=== PATIENT | female | born 1965 | race Caucasian/White ===

== ENCOUNTER 2020-05-28 08:30 | Day surgery (SDC) | payer MEDICARE ==
--- NOTE | 2020-05-28 08:08 | HP ---
DATE OF SURGERY: 05/28/2020 HISTORY OF PRESENT ILLNESS: The patient is a 54 year old started four to six weeks ago off and on change in bowel habits, worse problems, had three to four loose stools. She had extensive work up in the past. Some cramping and pain at times. No bloody stools. Family history of cousin passing away with colon cancer. PAST MEDICAL HISTORY: Denied chronic illnesses. Several years ago the patient had abnormal gallbladder ejection fraction. PAST SURGICAL HISTORY: section in the past. No other abdominal surgeries. MEDICATIONS: None. ALLERGIES: CODEINE. ACETAMINOPHEN. FAMILY HISTORY: Cousin passing away with colon cancer. SOCIAL HISTORY: No smoking or alcohol abuse. REVIEW OF SYSTEMS: Fourteen systems reviewed. No chest pain or palpitations. Other systems negative or noncontributory as above and per preadmission questionnaire. PHYSICAL EXAMINATION: GENERAL: No acute distress. HEENT: Sclerae nonicteric. NECK: No JVD. CHEST: Equal excursion, nonlabored breathing. CVS: Regular rate and rhythm. ABDOMEN: Soft. No peritoneal signs. EXTREMITIES: No significant edema. NEURO: Alert, oriented, moving extremities symmetrically. No gross motor deficits noted. RECTAL: Deferred timed to endoscopy exam. PSYCH: Appropriate mood and affect. IMPRESSION: Change in bowel habits, increased loose stools of unclear etiology. She in need of colonoscopy. She also has family history of colon cancer. She needs follow up colonoscopy for evaluation. Risks and benefits explained in detail including but not limited to bleeding or infection, risk of bowel injury or perforation possibly requiring open procedure, risk of missed or nondiagnosis or incomplete exam possibly requiring barium enema, other studies or procedures, general risk of anesthesia or sedation, risk of bowel prep but not limited to, consent obtained, will proceed with colonoscopy under MAC anesthesia.
[2020-05-28] MEDS ORDERED: Versed 2 MG/2 ML Injection IV ONE (09:21)
[2020-05-28] MEDS ORDERED: Versed 2 MG/2 ML Injection ONE (09:24)
[2020-05-28] MEDS ORDERED: Lactated Ringers 1,000 ML IV SCH (09:30)
[2020-05-28] MEDS ORDERED: DIPRIVAN 200 MG/20 ML IV ONE ×2 (10:49→11:01)
[2020-05-28] MEDS ORDERED: Xylocaine-Mpf 2% 5 Ml Vial ONE (11:00)
[2020-05-28 12:59] VITALS: BP 156/79; PULSE 76; O2SAT 97
--- NOTE | 2020-05-28 13:20 | OP ---
SURGERY DATE/TIME: 05/28/2020 1052 PREOPERATIVE DIAGNOSIS: Change in bowel habits, need for colonoscopy for further evaluation. POSTOPERATIVE DIAGNOSES: Slightly tortuous colon, fair bowel prep, large amount of liquidy stool throughout the colon slightly limiting the exam. Otherwise, no signs of any large polyps, masses or obstructing lesions. PROCEDURES: 1) Colonoscopy to terminal ileum 2) Retrograde ileoscopy. 3) Random cold biopsies of the colon to evaluate for microscopic colitis. SURGEON: Dr. Claudy Stephenson. PRODUCTION TECH: Eder Lindsay, Medical Student II. ANESTHESIA: MAC. ESTIMATED BLOOD LOSS: Minimal. INDICATIONS: As noted above. Risks and benefits explained in detail but not limited to and consent obtained. DESCRIPTION OF PROCEDURE AND FINDINGS: The patient is taken to the operating room. MAC anesthesia introduced. After official time out and no disagreement with planned procedure, digital rectal exam did not reveal any rectal masses. Video colonoscope passed up through the tortuous sigmoid, descending, transverse and ascending colon. It took some time given the large amount of liquidy stool throughout the colon requiring suction just slightly limiting the exam for very small lesions. The scope was able to be passed around to the cecum. Appendiceal orifice was photo documented. The scope passed up the terminal ileum. Retrograde ileoscopy performed which was grossly unremarkable. There were no signs of any michael inflammatory bowel disease in distal ileum. The scope was carefully withdrawn over the next eight minutes. No signs of any large polyps, masses or obstructing lesions. The mucosa did not have any evidence of macroscopic colitis but given her change in bowel habits, random cold biopsies were taken in the colon to evaluate for microscopic colitis. There were no signs of any large diverticula. No signs of any significant internal hemorrhoids. The scope was withdrawn. The patient tolerated the procedure well. There were no immediate complications. Findings discussed with the family over the phone.
== END 2020-05-28 12:25 | disposition home or self-care (01) ==
LOC: SDC 08:30
PROVIDERS: ATTEND Surgery
DX: R19.4 Change in bowel habit (principal); Z80.0 Family history of malignant neoplasm of digestive organs
CPT/HCPCS: J2250; J2704

== ENCOUNTER 2022-11-03 03:06 | Emergency (ER) | payer MEDICARE ==
[2022-11-03 04:15] LABS: Absolute Neutrophil Ct (ANC) 4.72 x10^3/uL (1.4-6.9); BASOPHIL % 0.5 % (0.0-0.4); Basophil (Absolute #) 0.05 x10^3/uL (0-0.4); Eosinophil % 0.6 % (0.00-5.0); Eosinophil (Absolute #) 0.06 x10^3/uL (0-0.5); Hematocrit 44.4 % (35-47); Hemoglobin 14.2 g/dL (12.0-16.0); IMMATURE GRAN # 0.03 x10^3u/L (0.00-0.03); IMMATURE GRAN % 0.3 % (0.00-0.4); Lymphocyte (Absolute #) 3.99 x10^3/uL (1.0-4.6); Lymphocytes % 42.7 % (24.0-44.0); Mean Cell Volume 99.8 fL (78-100); Mean Corpuscular Hemoglobin 31.9 pg (26-32); Mean Platelet Volume 9.9 fL (7.5-11.0); Monocytes % 5.3 % (0.0-12.0); Neutrophil % 50.6 % (36.0-66.0); Platelet Count 224 x10^3/uL (150-450); Red Blood Count 4.45 x10^6/uL (4.1-5.4); Red Cell Distribution Width 13.2 % (11.5-14.0); White Blood Count 9.4 x10^3/uL (4.0-10.5)
[2022-11-03 04:30] LABS: ALBUMIN 4.6 g/dL (3.5-5.0); ALKALINE PHOSPHATASE 102 U/L (38-126); ANION GAP 18.2 MEQ/L (5-15); BLOOD UREA NITROGEN 14 mg/dL (7-17); CHLORIDE 104 mmol/L (98-107); Calcium 9.9 mg/dL (8.4-10.2); Carbon Dioxide 20 mmol/L (22-30); Creatinine 1 0.91 mg/dL (0.52-1.04); EST GLOMERULAR FILTRATION RATE > 60.0 ML/MIN; Glucose 106 mg/dL (74-106); Potassium 3.2 mmol/L (3.5-5.1); SGOT/AST 27 U/L (14-36); SGPT/ALT 28 U/L (0-35); SODIUM 140 mmol/L (137-145); Total Protein 8.1 g/dL (6.3-8.2)
[2022-11-03 06:17] LABS: Appearance Clear (Clear); Bacteria Many /HPF (None Seen); Bilirubin Negative (Negative); Blood Negative (Negative); Epithelial Cells None Seen /HPF (None Seen); Glucose, Urine Negative (Negative); Hyaline Casts NONE SEEN /LPF (0-2); Ketones Negative (Negative); Leukocyte Esterase Negative (Negative); Nitrite Negative (Negative); Ph 5.5 (4.6-8.0); Protein,Urine Dip Negative (Negative); RBC 0-2 /HPF (0-5); Specific Gravity <=1.005 (1.005-1.030); Urobilinogen 0.2 mg/dL (0.2); WBC 0-2 /HPF (0-5)
[2022-11-03 06:21] LABS: ADD URINE CULTURE? NO (NO)
[2022-11-03] MEDS ORDERED: Klor Con PO ONE ×2 (06:41→07:00)
--- NOTE | 2022-11-03 06:46 | ERPHSYRPT ---
- History of Present Illness Source: patient Exam Limitations: no limitations Patient Subjective Stated Complaint: pt states that she has had this same shortness of breath for many months, that nothing changed causing her to call 911 tonight but she has a family history of heart disease and wants to know if she has any blockages in her heart. Triage Nursing Assessment: pt brought into room 6 via EMS stretcher. pt is alert and oriented times three, able to move all extremities (some limitation due to h/o cerebral palsy), resp even and unlabored, able to speak in complete sentences. pt denies SOB at this time, CP, abdominal pain, n/v, difficulty with urination or bowel elimination. breath sounds clear bilat anterior, heart sounds normal, abd soft, nontender with positive bowel sounds in all 4 quads. bilat pedal and radial pulses palpable and no edema noted. Timing/Duration: other (3+ months) Severity: mild Modifying Factors: Improves With: nothing Associated Symptoms: denies symptoms Hx Tetanus, Diphtheria Vaccination/Date Given: No Hx Influenza Vaccination/Date Given: No Hx Pneumococcal Vaccination/Date Given: No Immunizations Up to Date: No - History of Present Illness Time Seen by Provider: 11/03/22 03:30 Physician History: Patient is a 56-year-old female presents to our ED via EMS for evaluation of shortness of breath that has been ongoing for at least 6 months per patient. Patient has no change in her shortness of breath status but patient realized that she has a family history of heart disease. Patient is here to find out if she is got any active coronary blockages. Patient has no chest pain. No nausea vomiting or diaphoresis. No active symptomology. Symptoms are mild in intensity. No specific worsening improving factors. Patient wears 2 L nasal cannula at home. Patient voices no other complaints or concerns at this time. Portions of this note were created with voice recognition technology. There may be grammatical, spelling, punctuation or sound alike errors (AMALIA REDDY) Allergies/Adverse Reactions: acetaminophen [From Vicodin] Adverse Reaction (Mild, Verified 11/03/22 03:08) Vomiting hydrocodone bitartrate [From Vicodin] Adverse Reaction (Mild, Verified 11/03/22 03:08) Vomiting codeine Adverse Reaction (Verified 11/03/22 03:08) Home Medications: Cimetidine 200 mg PO DAILY 05/23/20 [History] Budesonide [Budesonide EC] 3 mg PO DAILY 11/03/22 [History] Simvastatin 20Mg [Zocor 20Mg] 20 mg PO QPM 11/03/22 [History] Travel Risk - International Travel Have you traveled outside of the country in past 3 weeks: No - Coronavirus Screening Are you exhibiting any of the following symptoms?: No Close contact with a COVID-19 positive Pt in past 14-21 Days: No - Vaccine Status Have you recieved a Covid-19 vaccination: No - Review of Systems Constitutional: No Symptoms, No Fever, No Chills Eyes: No Symptoms Ears, Nose, & Throat: No Symptoms Respiratory: No Symptoms, No Cough, No Dyspnea Cardiac: No Symptoms, No Chest Pain, No Edema, No Syncope Abdominal/Gastrointestinal: No Symptoms, No Abdominal Pain, No Nausea, No Vomiting, No Diarrhea Genitourinary Symptoms: No Symptoms, No Dysuria Musculoskeletal: No Symptoms, No Back Pain, No Neck Pain Skin: No Symptoms, No Rash Neurological: No Symptoms, No Dizziness, No Focal Weakness, No Sensory Changes Psychological: No Symptoms Endocrine: No Symptoms Hematologic/Lymphatic: No Symptoms Immunological/Allergic: No Symptoms All Other Systems: Reviewed and Negative - Past Medical History Pertinent Past Medical History: Yes Neurological History: Other ENT History: No Pertinent History Cardiac History: High Cholesterol Respiratory History: No Pertinent History Endocrine Medical History: No Pertinent History Musculoskeletal History: Other GI Medical History: No Pertinent History History: No Pertinent History Psycho-Social History: No Pertinent History Female Reproductive Disorders: No Pertinent History Other Medical History: Hx of cerebral palsy - Past Surgical History Past Surgical History: Yes Neuro Surgical History: No Pertinent History Cardiac: No Pertinent History Respiratory: No Pertinent History Gastrointestinal: No Pertinent History Genitourinary: No Pertinent History Musculoskeletal: Orthopedic Surgery Female Surgical History: Section Other Surgical History: EGD, states surgery r/t cerebral palsey. as broken legs,heel chord reductions,gustavo leg ligaments,left arm muscle removed for leg,c- section - Social History Smoking Status: Never smoker Exposure to second hand smoke: Yes Drug Use: none Patient Lives Alone: No (see note) - Physical Exam General Appearance: no apparent distress, alert, other (Intact nasal cannula at 2 L) Eye Exam: PERRL/EOMI, eyes nml inspection Ears, Nose, Throat Exam: normal ENT inspection, TMs normal, pharynx normal, moist mucous membranes Neck Exam: normal inspection, non-tender, supple, full range of motion Respiratory Exam: normal breath sounds, lungs clear, No respiratory distress Cardiovascular Exam: regular rate/rhythm, normal heart sounds, normal peripheral pulses Gastrointestinal/Abdomen Exam: soft, normal bowel sounds, No tenderness, No mass Back Exam: normal inspection, normal range of motion, No CVA tenderness, No vertebral tenderness Extremity Exam: normal inspection, normal range of motion, pelvis stable, other (Chronic lower extremity changes due to history of cerebral palsy.) Neurologic Exam: alert, oriented x 3, cooperative, normal mood/affect, nml cerebellar function, nml station & gait, sensation nml, No motor deficits Skin Exam: normal color, warm, dry, No rash Lymphatic Exam: No adenopathy SpO2 Interpretation: normal SpO2: 98 O2 Delivery: Room Air - Nursing Vital Signs Nursing Vital Signs: Initial Vital Signs Temperature 97.4 F 11/03/22 03:06 Pulse Rate 98 H 11/03/22 03:06 Respiratory Rate 16 11/03/22 03:06 Blood Pressure 122/82 11/03/22 03:06 O2 Sat by Pulse Oximetry 98 11/03/22 03:06 Pain Scale Pain Intensity 0 - Course Nursing assessment & vital signs reviewed: Yes EKG Interpreted by Me: RATE (95), Sinus Rhythm, NORMAL AXIS, NORMAL INTERVALS Ordered Tests: Active Orders 24 hr Category Date Time Status Project Lead STAT Care 11/03/22 03:31 Active EKG-ER Only STAT Care 11/03/22 03:30 Active IV Insertion STAT Care 11/03/22 03:30 Active Pulse Oximetry (ED) STAT Care 11/03/22 03:30 Active CHEST 1 VIEW (PORTABLE) Stat Exams 11/03/22 06:54 Completed CBC W DIFF Stat Lab 11/03/22 04:11 Completed CMP Stat Lab 11/03/22 04:11 Completed NT PRO BNPII Stat Lab 11/03/22 04:11 Completed TROPONIN Q4H Lab 11/03/22 04:11 Completed TROPONIN Q4H Lab 11/03/22 07:54 Received TROPONIN Q4H Lab 11/03/22 11:45 Ordered UA W/RFX UR CULTURE Stat Lab 11/03/22 05:19 Completed Medication Summary Discontinued Medications Generic Name Dose Route Start Last Admin Trade Name [place] PRN Reason Stop Dose Admin Potassium Chloride 40 meq 11/03/22 06:41 11/03/22 07:01 Potassium Chloride Tab 10 Meq Tab PO 11/03/22 06:42 40 meq STAT ONE Administration Potassium Chloride Confirm 11/03/22 07:00 Potassium Chloride Tab 10 Meq Tab Administered 11/03/22 07:01 Dose 40 meq PO .STK-MED ONE Lab/Rad Data: Laboratory Result Diagrams 11/03/22 04:11 11/03/22 04:11 Laboratory Results 11/03/22 11/03/22 11/03/22 Range/Units 05:19 04:11 04:11 WBC (4.0-10.5) x10^3/uL RBC (4.1-5.4) x10^6/uL Hgb (12.0-16.0) g/dL Hct (35-47) % MCV (78-100) fL MCH (26-32) pg MCHC (32-36) g/dL RDW (11.5-14.0) % Plt Count (150-450) x10^3/uL MPV (7.5-11.0) fL Gran % (36.0-66.0) % Immature Gran % (Auto) (0.00-0.4) % Nucleat RBC Rel Count (0.00-0.1) % Eos # (Auto) (0-0.5) x10^3/uL Immature Gran # (Auto) (0.00-0.03) x10^3u/L Absolute Lymphs (auto) (1.0-4.6) x10^3/uL Absolute Monos (auto) (0.0-1.3) x10^3/uL Absolute Nucleated RBC (0.00-0.01) x10^3u/L Lymphocytes % (24.0-44.0) % Monocytes % (0.0-12.0) % Eosinophils % (0.00-5.0) % Basophils % (0.0-0.4) % Absolute Granulocytes (1.4-6.9) x10^3/uL Basophils # (0-0.4) x10^3/uL Sodium (137-145) mmol/L Potassium (3.5-5.1) mmol/L Chloride (98-107) mmol/L Carbon Dioxide (22-30) mmol/L Anion Gap (5-15) MEQ/L BUN (7-17) mg/dL Creatinine (0.52-1.04) mg/dL Estimated GFR ML/MIN Glucose (74-106) mg/dL Calcium (8.4-10.2) mg/dL Total Bilirubin (0.2-1.3) mg/dL AST (14-36) U/L ALT (0-35) U/L Alkaline Phosphatase (38-126) U/L Troponin I < 0.012 (0.000-0.034) ng/mL NT-Pro-B Natriuret Pep < 20.0 (<300) pg/mL Serum Total Protein (6.3-8.2) g/dL Albumin (3.5-5.0) g/dL Urine Color Yellow (Yellow) Urine Appearance Clear (Clear) Urine pH 5.5 (4.6-8.0) Ur Specific [place] <=1.005 (1.005-1.030) Urine Protein Negative (Negative) Urine Glucose (UA) Negative (Negative) mg/dL Urine Ketones Negative (Negative) Urine Blood Negative (Negative) Urine Nitrite Negative (Negative) Urine Bilirubin Negative (Negative) Urine Urobilinogen 0.2 (0.2) mg/dL Ur Leukocyte Esterase Negative (Negative) U Hyaline Cast (Auto) NONE SEEN (0-2) /LPF Urine Microscopic RBC 0-2 (0-5) /HPF Urine Microscopic WBC 0-2 (0-5) /HPF Ur Epithelial Cells None Seen (None Seen) /HPF Urine Bacteria Many A (None Seen) /HPF Urine Culture Reflexed NO (NO) 11/03/22 11/03/22 Range/Units 04:11 04:11 WBC 9.4 (4.0-10.5) x10^3/uL RBC 4.45 (4.1-5.4) x10^6/uL Hgb 14.2 (12.0-16.0) g/dL Hct 44.4 (35-47) % MCV 99.8 (78-100) fL MCH 31.9 (26-32) pg MCHC 32.0 (32-36) g/dL RDW 13.2 (11.5-14.0) % Plt Count 224 (150-450) x10^3/uL MPV 9.9 (7.5-11.0) fL Gran % 50.6 (36.0-66.0) % Immature Gran % (Auto) 0.3 (0.00-0.4) % Nucleat RBC Rel Count 0.0 (0.00-0.1) % Eos # (Auto) 0.06 (0-0.5) x10^3/uL Immature Gran # (Auto) 0.03 (0.00-0.03) x10^3u/L Absolute Lymphs (auto) 3.99 (1.0-4.6) x10^3/uL Absolute Monos (auto) 0.50 (0.0-1.3) x10^3/uL Absolute Nucleated RBC 0.00 (0.00-0.01) x10^3u/L Lymphocytes % 42.7 (24.0-44.0) % Monocytes % 5.3 (0.0-12.0) % Eosinophils % 0.6 (0.00-5.0) % Basophils % 0.5 (0.0-0.4) % Absolute Granulocytes 4.72 (1.4-6.9) x10^3/uL Basophils # 0.05 (0-0.4) x10^3/uL Sodium 140 (137-145) mmol/L Potassium 3.2 L (3.5-5.1) mmol/L Chloride 104 (98-107) mmol/L Carbon Dioxide 20 L (22-30) mmol/L Anion Gap 18.2 H (5-15) MEQ/L BUN 14 (7-17) mg/dL Creatinine 0.91 (0.52-1.04) mg/dL Estimated GFR > 60.0 ML/MIN Glucose 106 (74-106) mg/dL Calcium 9.9 (8.4-10.2) mg/dL Total Bilirubin 0.40 (0.2-1.3) mg/dL AST 27 (14-36) U/L ALT 28 (0-35) U/L Alkaline Phosphatase 102 (38-126) U/L Troponin I (0.000-0.034) ng/mL NT-Pro-B Natriuret Pep (<300) pg/mL Serum Total Protein 8.1 (6.3-8.2) g/dL Albumin 4.6 (3.5-5.0) g/dL Urine Color (Yellow) Urine Appearance (Clear) Urine pH (4.6-8.0) Ur Specific [place] (1.005-1.030) Urine Protein (Negative) Urine Glucose (UA) (Negative) mg/dL Urine Ketones (Negative) Urine Blood (Negative) Urine Nitrite (Negative) Urine Bilirubin (Negative) Urine Urobilinogen (0.2) mg/dL Ur Leukocyte Esterase (Negative) U Hyaline Cast (Auto) (0-2) /LPF Urine Microscopic RBC (0-5) /HPF Urine Microscopic WBC (0-5) /HPF Ur Epithelial Cells (None Seen) /HPF Urine Bacteria (None Seen) /HPF Urine Culture Reflexed (NO) - Progress Progress: improved Counseled pt/family regarding: lab results, diagnosis, need for follow-up - Progress Progress Note: Patient is a 56-year-old female presents to our ED for evaluation of shortness of breath that has been ongoing for at least 3 months. No change in the status of her chronic shortness of breath however patient is here to be evaluated for cardiac blockage. Patient states that she has a family history of coronary artery disease and she wants to make sure she does not have a coronary blockage. Physical exam essentially nonremarkable. Patient wears 2 L nasal cannula daily. Patient has a history of CP. Patient chronic lower extremity changes due to CP. Patient otherwise has no complaints. Test ordered including EKG which reveals normal sinus rhythm. Chest x-ray pending. CBC within normal limits. CMP reveals potassium 3.2. Patient received 40 mEq potassium chloride oral replacement. Troponin negative. Second troponin pending. Urinalysis negative. Patient resting comfortably. She has no pain at this time. No discomfort at rest. Is currently the change of shift. Patient endorsed to Dr. Rodriguez who will follow-up on second troponin and chest x-ray. Plan of care discussed with patient. Patient voices no other complaints or concerns at this time. Portions of this note were created with voice recognition technology. There may be grammatical, spelling, punctuation or sound alike errors Complexity of problem addressed is moderate acute complicated. No critical care time Complexity of data reviewed and analyzed is moderate. Test ordered. Test reviewed. Clinical correlation made between physical exam findings patient complaints and laboratory results. Risk of complication and or risk morbidity/mortality patient management is moderate. Patient received oral potassium to treat hypokalemia. Supplemental oxygen administered as per patient baseline. Disposition pending. Troponin #2 pending. Chest x-ray pending. Plan of care at this point was established for shared decision making. Vitals have been stable. Dr. Rodriguez will make final disposition. Portions of this note were created with voice recognition technology. There may be grammatical, spelling, punctuation or sound alike errors 11/03/22 07:01 (AMALIA REDDY) 11/03/22 08:59 Patient's chest x-ray was interpreted by the radiologist and I reviewed the report impression. No evidence of any acute cardiopulmonary process. If the repeat troponin level is normal patient will be discharged to home and follow-up with her primary care provider. In (JOANNE RODRIGUEZ) - Departure Departure Disposition: Home Critical Care Time: No - Departure Clinical Impression: Hypokalemia, Shortness of breath Condition: Stable Referrals: [facility] [Primary Care Provider] - Follow up/PCP as directed Additional Instructions: Discharge/Care Plan MARIELA SAUL was seen on 11/03/22 in the Emergency Room. The patient was counseled regarding Diagnosis,Lab results, Imaging studies, need for follow up and when to return to the Emergency Room. Prescriptions given: Discharge Note I have spoken with the patient and/or caregivers. I have explained the patient's condition, diagnosis and treatment plan based on the information available to me at this time. I have answered the patient's and/or caregiver's questions and addressed any concerns. The patient and/or caregivers have as good understanding of the patient's diagnosis, condition and treatment plan as can be expected at this point. The vital signs have been stable. The patient's condition is stable and appropriate for discharge from the emergency department. The patient will pursue further outpatient evaluation with the primary care physician or other designated or consulting physician as outlined in the discharge instructions. The patient and/or caregivers are agreeable to this plan of care and follow-up instructions have been explained in detail. The patient and/or caregivers have received these instruction. The patient/and or caregivers are aware that any significant change in condition or worsening of symptoms should prompt an immediate return to this or the closest emergency department or call 911.
--- NOTE | 2022-11-03 08:56 | XRAY ---
Indication: Short of breath. Comparison: None Portable chest hyperinflated with minimal left base subsegmental atelectasis/scarring. Remaining heart and lungs unremarkable. Bony thorax intact with mild degenerative changes and old left 9 rib fracture.
[2022-11-03 09:13] VITALS: BP 116/80; PULSE 105; O2SAT 94
== END 2022-11-03 10:05 | disposition home or self-care (01) ==
LOC: ED 03:06
DX: E87.6 Hypokalemia (principal); R06.02 Shortness of breath; E78.5 Hyperlipidemia, unspecified; Z79.899 Other long term (current) drug therapy; Z28.310 Unvaccinated for COVID-19; Z99.81 Dependence on supplemental oxygen
CPT/HCPCS: 36000; 36415; 71045; 80053; 81001; 83880; 84484; 85025; 93005; 93041; 94760; 99284; A9270-GY

== ENCOUNTER 2024-01-07 04:06 | Emergency (ER) | payer MEDICARE ==
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
[2024-01-07 04:25] VITALS: TEMP 97.2
[2024-01-07] MEDS ORDERED: TYLENOL 325 MG ONE (05:39)
--- NOTE | 2024-01-07 05:40 | XRAY ---
CLINICAL HISTORY: trauma COMPARISON: None. TECHNIQUE: Axial non-contrast CT scan of the brain was performed from the skull base to the high parietal region. One of the following dose reduction techniques were utilized for this exam: Automated exposure control, adjustment of the mA and/or kV according to patient size, use of iterative reconstruction. FINDINGS: Brain Parenchyma: Normal attenuation of the cerebral hemispheres, cerebellum, and brainstem. Few calcifications noted in bilateral lee radiata. No evidence of acute infarct, hemorrhage, or mass effect. No abnormal areas of hypo- or hyperattenuation. Ventricular System: Ventricles are normal in size and configuration. No evidence of hydrocephalus or ventricular enlargement. Subarachnoid Spaces: Normal sulci and cisterns. No evidence of subarachnoid hemorrhage or extra-axial fluid collections. Cerebellum and Brainstem: Normal size and signal. No masses, lesions, or areas of abnormal signal. Orbits: Normal appearance of the globes, optic nerves, and extraocular muscles. No evidence of orbital masses or abnormal signal. Sinuses: Clear paranasal sinuses. No evidence of sinusitis or mucosal thickening. Mastoid Air Cells: Clear mastoid air cells. No evidence of mastoiditis. Skull and Meninges: Normal skull morphology. No evidence of meningeal thickening. IMPRESSION: 1. Few calcifications in bilateral lee radiata. 2. A well-corticated ossific density seen Close to the nasal septum anteriorly, With no adjacent significant soft tissue swelling. This may represent an accessory ossicle, however considering the history of the patient possibility of nasal septum fracture cannot be entirely excluded would recommend clinical Correlation and local examination. 3. No definite intraparenchhymal hemorrhage or established infarct appreciated Electronically Signed by: Charlie Hurtado MD. (01/07/2024 05:37:18 EDT)
--- NOTE | 2024-01-07 05:40 | XRAY ---
CLINICAL HISTORY: trauma COMPARISON: None. TECHNIQUE: Non-Contrast CT scan of the paranasal sinuses was performed, with sagittal and coronal multiplanar reconstruction. One of the following dose reduction techniques were utilized for this exam: Automated exposure control, adjustment of the mA and/or kV according to patient size, and use of iterative reconstruction. FINDINGS: Significant motion artifacts are seen obscuring fine details Sinuses: All paranasal sinuses are clear. No evidence of sinusitis, mucosal thickening, or fluid levels. Osteomeatal complexes are patent. Nasal Cavity: there is well-corticated ossific density seen Close to the nasal septum anteriorly, With no adjacent significant soft tissue swelling. This may represent any accessory ossicle, however considering the history of the patient possibility of nasal septum fracture cannot be entirely excluded would recommend clinical Correlation and local examination Nasal cavity is unremarkable. No masses, polyps, slight nasal septum deviation to the right. Orbits: Orbits are normal in size and shape. Extraocular muscles and optic nerves are normal. No evidence of orbital masses or proptosis. Maxilla and Mandible: Normal appearance of the maxillary and mandibular bones. No fractures, lytic or sclerotic lesions. Normal dentition without significant periodontal disease. Facial Bones: Questionable undisplaced lucent lines at left nasal bones with no related soft tissue thickening. Zygomatic arches, and other facial structures are intact with no fractures or deformities. Soft Tissues: Soft tissues of the face are normal. No abnormal masses, swelling, or lymphadenopathy. Temporomandibular Joints (TMJ): Normal appearance of the TMJ bilaterally. Cervical marked spondylodegenerative changes. Left cheek soft tissues appear swollen and edematous, No evidence of surgical emphysema. IMPRESSION: 1. A well-corticated ossific density seen Close to the nasal septum anteriorly, With no adjacent significant soft tissue swelling. This may represent an accessory ossicle, however considering the history of the patient possibility of nasal septum fracture cannot be entirely excluded would recommend clinical Correlation and local examination. 2. No other acute fracture is appreciated. 3. Mild left cheek swelling noted Electronically Signed by: Charlie Hurtado MD. (01/07/2024 05:35:50 EDT)
[2024-01-07] MEDS: TYLENOL 325 MG PO ONE (05:42)
[2024-01-07 06:04] VITALS: O2SAT 97
[2024-01-07 06:19] VITALS: BP 138/80; PULSE 88; RESP 15
== END 2024-01-07 06:29 | disposition home or self-care (01) ==
LOC: ED 04:06
DX: S01.112A Laceration without foreign body of left eyelid and periocular area, initial encounter (principal); S01.412A Laceration without foreign body of left cheek and temporomandibular area, initial encounter; W05.2XXA Fall from non-moving motorized mobility scooter, initial encounter; E78.5 Hyperlipidemia, unspecified; Z79.899 Other long term (current) drug therapy
CPT/HCPCS: 12013; 70450; 70486; 99283; A9270-GY